=== PATIENT | male | born 1985 | race Caucasian/White ===

== ENCOUNTER 2024-11-14 11:01 | Emergency (ER) | payer BC ==
[2024-11-14 11:30] VITALS: TEMP 96.8
--- NOTE | 2024-11-14 11:39 | ERPHSYRPT ---
- History of Present Illness Time Seen by Provider: 11/14/24 11:39 Historian: patient, family Exam Limitations: no limitations Physician History: This is a 39-year-old white male patient who arrives by private vehicle with a complaint of syncopal episode at work followed by multiple episodes of vomiting, headache and abdominal pain. He is never had anything like that before. Patient has not been on any new medications. He denies illicit drug use. He denies alcohol use. He did not have any head injury. He takes no prescription medication. Patient does not recall all the events. He has not had any visual changes. He denies chest pain and he denies shortness of breath. Patient states that he ordinarily is very healthy and active. Patient smokes tobacco cigarettes daily. Activities at Onset: other (At work) Quality: aching Abdominal Pain Onset Location: periumbilical Pain Radiation: no radiation Severity of Pain-Max: moderate Severity of Pain-Current: mild Modifying Factors: Improves With: vomiting Associated Symptoms: nausea, vomiting, No chest pain, No fever/chills, No shortness of breath Previous symptoms: no prior history, no recent treatment Allergies/Adverse Reactions: gabapentin Allergy (Verified 11/14/24 11:27) ketorolac [From Toradol] Allergy (Verified 11/14/24 11:27) levofloxacin [From Levaquin] Allergy (Verified 11/14/24 11:27) tramadol [From Ultram] Allergy (Verified 11/14/24 11:27) Home Medications: No Reportable Medications [No Reported Medications] 11/14/24 [History] - Past Medical History Pertinent Past Medical History: No - Past Surgical History Past Surgical History: Yes Gastrointestinal: Hernia Repair Musculoskeletal: Orthopedic Surgery Other Surgical History: BACK X2 ,KNEE X2 ,SHOULDER,CYST REMOVED,HEMATOMA REMOVED FROM ARM - Nursing Vital Signs Nursing Vital Signs: Initial Vital Signs Temperature 96.8 F 11/14/24 11:29 Pulse Rate 66 11/14/24 11:29 Respiratory Rate 18 11/14/24 11:29 Blood Pressure 147/95 11/14/24 11:29 O2 Sat by Pulse Oximetry 100 11/14/24 11:29 Pain Scale Pain Intensity 8 - Physical Exam SpO2: 100 Ordered Tests: Active Orders 24 hr Category Date Time 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 11/14/24 12:06 Active Clean Catch Urine Specimen STAT Care 11/14/24 12:05 Active IV Insertion STAT Care 11/14/24 12:05 Active Orthostatic Vital Signs STAT Care 11/14/24 12:05 Active Pulse Oximetry (ED) STAT Care 11/14/24 12:05 Active ABDOMEN AND PELVIS W/0 CONTRAS [CT] Stat Exams 11/14/24 13:38 Ordered HEAD WITHOUT CONTRAST [CT] Stat Exams 11/14/24 12:06 Completed AMYLASE Stat Lab 11/14/24 12:13 Completed CBC W DIFF Stat Lab 11/14/24 12:13 Completed CMP Stat Lab 11/14/24 12:13 Completed ETHYL ALCOHOL Stat Lab 11/14/24 12:13 Completed LIPASE Stat Lab 11/14/24 12:13 Completed UA W/RFX UR CULTURE Stat Lab 11/14/24 12:13 Completed Urine Triage Profile Stat Lab 11/14/24 12:13 Completed Medication Summary Discontinued Medications Generic Name Dose Route Start Last Admin Trade Name Freq PRN Reason Stop Dose Admin Sodium Chloride 1,000 mls @ 999 mls/hr 11/14/24 12:05 11/14/24 13:46 Sodium Chloride 0.9% 1000 Ml IV 11/14/24 13:05 Infused .Q1H1M STA Infusion Sodium Chloride Confirm 11/14/24 12:23 Sodium Chloride 0.9% 1000 Ml Administered 11/14/24 12:24 Dose 1,000 mls @ ud .ROUTE .STK-MED ONE Ondansetron HCl 4 mg 11/14/24 12:06 11/14/24 12:26 Ondansetron Hcl 4 Mg/2 Ml Vial IV 11/14/24 12:07 4 mg STAT ONE Administration Ondansetron HCl Confirm 11/14/24 12:23 Ondansetron Hcl 4 Mg/2 Ml Vial Administered 11/14/24 12:24 Dose 4 mg .ROUTE .STK-MED ONE Pantoprazole Sodium 40 mg 11/14/24 12:06 11/14/24 12:27 Pantoprazole 40 Mg Vial IV 11/14/24 12:07 40 mg STAT ONE Administration Pantoprazole Sodium Confirm 11/14/24 12:23 Pantoprazole 40 Mg Vial Administered 11/14/24 12:24 Dose 40 mg IV .STK-MED ONE Lab/Rad Data: Laboratory Result Diagrams 11/14/24 12:13 11/14/24 12:13 Laboratory Results 11/14/24 11/14/24 11/14/24 Range/Units 12:13 12:13 12:13 WBC 10.9 H (4.23-9.07) x10^3/uL RBC 4.67 (4.63-6.08) x10^6/uL Hgb 14.7 (13.7-17.5) g/dL Hct 42.6 (40.1-51.0) % MCV 91.2 (79.0-92.2) fL MCH 31.5 (25.7-32.2) pg MCHC 34.5 (32.3-36.5) g/dL RDW 12.8 (11.6-14.4) % Plt Count 250 (163-337) x10^3/uL MPV 9.7 (9.4-12.4) fL Gran % 75.3 H (34.0-67.9) % Immature Gran % (Auto) 0.3 (0.001-0.429) % Nucleat RBC Rel Count 0.0 (0.00-0.2) % Eos # (Auto) 0.19 (0.04-0.54) x10^3/uL Immature Gran # (Auto) 0.03 (0.001-0.031) x10^3u/L Absolute Lymphs (auto) 1.72 (1.32-3.57) x10^3/uL Absolute Monos (auto) 0.68 (0.30-0.82) x10^3/uL Absolute Nucleated RBC 0.00 (0.00-0.012) x10^3u/L Lymphocytes % 15.8 L (21.8-53.1) % Monocytes % 6.3 (5.3-12.2) % Eosinophils % 1.7 (0.8-7.0) % Basophils % 0.6 (0.2-1.2) % Absolute Granulocytes 8.18 H (1.78-5.38) x10^3/uL Basophils # 0.06 (0.01-0.08) x10^3/uL Sodium 140 (135-145) mmol/L Potassium 3.9 (3.5-5.1) mmol/L Chloride 99 (98-107) mmol/L Carbon Dioxide 30 (22-30) mmol/L Anion Gap 14.7 (5-15) MEQ/L BUN 18 (9-20) mg/dL Creatinine 0.91 (0.66-1.25) mg/dL Estimated GFR 109.3 ML/MIN Glucose 91 (74-106) mg/dL Calcium 10.0 (8.4-10.2) mg/dL Total Bilirubin 0.50 (0.2-1.3) mg/dL AST 54 (17-59) U/L ALT 41 (0-50) U/L Alkaline Phosphatase 67 (38-126) U/L Serum Total Protein 7.4 (6.3-8.2) g/dL Albumin 4.8 (3.5-5.0) g/dL Amylase 54 (30-110) U/L Lipase 31 (23-300) U/L Urine Color (Yellow) Urine Appearance (Clear) Urine pH (4.6-8.0) Ur Specific [place] (1.005-1.030) Urine Protein (Negative) Urine Glucose (UA) (Negative) mg/dL Urine Ketones (Negative) Urine Blood (Negative) Urine Nitrite (Negative) Urine Bilirubin (Negative) Urine Urobilinogen (0.2) mg/dL Ur Leukocyte Esterase (Negative) U Hyaline Cast (Auto) (0-2) /LPF Urine Microscopic RBC (0-5) /HPF Urine Microscopic WBC (0-5) /HPF Ur Epithelial Cells (None Seen) /HPF Urine Bacteria (None Seen) /HPF Urine Culture Reflexed (NO) Urine Opiates Level NEGATIVE (NEGATIVE) Ur Methadone NEGATIVE (NEGATIVE) Urine Barbiturates NEGATIVE (NEGATIVE) Ur Phencyclidine (PCP) NEGATIVE (NEGATIVE) Urine Amphetamine NEGATIVE (NEGATIVE) U Benzodiazepine Level NEGATIVE (NEGATIVE) Urine Cocaine NEGATIVE (NEGATIVE) Urine Marijuana (THC) NEGATIVE (NEGATIVE) Ethyl Alcohol < 10 (0-10) mg/dL 11/14/24 Range/Units 12:13 WBC (4.23-9.07) x10^3/uL RBC (4.63-6.08) x10^6/uL Hgb (13.7-17.5) g/dL Hct (40.1-51.0) % MCV (79.0-92.2) fL MCH (25.7-32.2) pg MCHC (32.3-36.5) g/dL RDW (11.6-14.4) % Plt Count (163-337) x10^3/uL MPV (9.4-12.4) fL Gran % (34.0-67.9) % Immature Gran % (Auto) (0.001-0.429) % Nucleat RBC Rel Count (0.00-0.2) % Eos # (Auto) (0.04-0.54) x10^3/uL Immature Gran # (Auto) (0.001-0.031) x10^3u/L Absolute Lymphs (auto) (1.32-3.57) x10^3/uL Absolute Monos (auto) (0.30-0.82) x10^3/uL Absolute Nucleated RBC (0.00-0.012) x10^3u/L Lymphocytes % (21.8-53.1) % Monocytes % (5.3-12.2) % Eosinophils % (0.8-7.0) % Basophils % (0.2-1.2) % Absolute Granulocytes (1.78-5.38) x10^3/uL Basophils # (0.01-0.08) x10^3/uL Sodium (135-145) mmol/L Potassium (3.5-5.1) mmol/L Chloride (98-107) mmol/L Carbon Dioxide (22-30) mmol/L Anion Gap (5-15) MEQ/L BUN (9-20) mg/dL Creatinine (0.66-1.25) mg/dL Estimated GFR ML/MIN Glucose (74-106) mg/dL Calcium (8.4-10.2) mg/dL Total Bilirubin (0.2-1.3) mg/dL AST (17-59) U/L ALT (0-50) U/L Alkaline Phosphatase (38-126) U/L Serum Total Protein (6.3-8.2) g/dL Albumin (3.5-5.0) g/dL Amylase (30-110) U/L Lipase (23-300) U/L Urine Color Yellow (Yellow) Urine Appearance Clear (Clear) Urine pH 6.5 (4.6-8.0) Ur Specific [place] 1.010 (1.005-1.030) Urine Protein Negative (Negative) Urine Glucose (UA) Negative (Negative) mg/dL Urine Ketones Negative (Negative) Urine Blood Negative (Negative) Urine Nitrite Negative (Negative) Urine Bilirubin Negative (Negative) Urine Urobilinogen 0.2 (0.2) mg/dL Ur Leukocyte Esterase Negative (Negative) U Hyaline Cast (Auto) NONE SEEN (0-2) /LPF Urine Microscopic RBC 0-2 (0-5) /HPF Urine Microscopic WBC 0-2 (0-5) /HPF Ur Epithelial Cells None Seen (None Seen) /HPF Urine Bacteria None Seen (None Seen) /HPF Urine Culture Reflexed NO (NO) Urine Opiates Level (NEGATIVE) Ur Methadone (NEGATIVE) Urine Barbiturates (NEGATIVE) Ur Phencyclidine (PCP) (NEGATIVE) Urine Amphetamine (NEGATIVE) U Benzodiazepine Level (NEGATIVE) Urine Cocaine (NEGATIVE) Urine Marijuana (THC) (NEGATIVE) Ethyl Alcohol (0-10) mg/dL - Progress Progress: improved, re-examined Progress Note: 11/14/24 14:54 Medical decision making and the assignment of moderate complexity to this patient's medical issue today is based on review of the patient's past medical history, review the patient's medication list, reviewed patient drug allergy list, history present illness and physical findings on examination. The workup in this patient includes placement of intravenous line, infusion of normal saline solution, antiemetic, morphine 4 mg intravenously, CBC, CMP, amylase, lipase, urinalysis and urine drug screen. The patient is to undergo CT scan of the head without contrast and a CT scan of the abdomen pelvis without contrast. Differential diagnosis includes but is not limited to syncopal episode, viral illness, dehydration, urinary tract infection, acute intra-abdominal/pelvic abnormality, acute intracranial abnormality, arrhythmia, electrolyte abnormalities The CT scan of the head without contrast is interpreted by the radiologist and the impression is an unremarkable study. There is no evidence of any acute intracranial abnormality. I interpreted the patient's laboratory data results. Patient has a very mild leukocytosis. No other acute, emergent medical findings. There was a delay in ordering the CT of the abdomen pelvis without contrast. I discussed this with the patient and he states he no longer has abdominal pain and wishes not to undergo the CT scan of the abdomen pelvis. His abdominal pain and nausea have resolved. He will sign refusal of study form. Counseled pt/family regarding: lab results, diagnosis, need for follow-up, rad results Medical Desision Making - Diagnostic Testing Diagnostic test were ordered, analyzed, and reviewed by me: Yes Radiological Interpretation: Reviewed by me, Teleradiologist Report - Risk of complications Low Risk: Low risk of morbidity from additional dx testing or treatment - Departure Departure Disposition: Home Clinical Impression: Episode of syncope, Vomiting, Abdominal pain Condition: Stable Critical Care Time: No Referrals: DOCTOR,NO FAMILY [Primary Care Provider, UNKNOWN] - Follow up/PCP as directed Forms: Work/School Release Form
[2024-11-14 12:19] LABS: Absolute Neutrophil Ct (ANC) 8.18 x10^3/uL (1.78-5.38); BASOPHIL % 0.6 % (0.2-1.2); Basophil (Absolute #) 0.06 x10^3/uL (0.01-0.08); Eosinophil % 1.7 % (0.8-7.0); Eosinophil (Absolute #) 0.19 x10^3/uL (0.04-0.54); Hematocrit 42.6 % (40.1-51.0); Hemoglobin 14.7 g/dL (13.7-17.5); IMMATURE GRAN # 0.03 x10^3u/L (0.001-0.031); IMMATURE GRAN % 0.3 % (0.001-0.429); Lymphocyte (Absolute #) 1.72 x10^3/uL (1.32-3.57); Lymphocytes % 15.8 % (21.8-53.1); Mean Cell Volume 91.2 fL (79.0-92.2); Mean Corpuscular Hemoglobin 31.5 pg (25.7-32.2); Mean Corpuscular Hgb Concent. 34.5 g/dL (32.3-36.5); Mean Platelet Volume 9.7 fL (9.4-12.4); Monocyte (Absolute #) 0.68 x10^3/uL (0.30-0.82); Monocytes % 6.3 % (5.3-12.2); Neutrophil % 75.3 % (34.0-67.9); Platelet Count 250 x10^3/uL (163-337); Red Blood Count 4.67 x10^6/uL (4.63-6.08); Red Cell Distribution Width 12.8 % (11.6-14.4); White Blood Count 10.9 x10^3/uL (4.23-9.07)
[2024-11-14] MEDS ORDERED: PROTONIX 40 MG IV IV ONE (12:23)
[2024-11-14] MEDS ORDERED: Sodium Chloride 0.9% 1000 ML 1,000 ML ONE (12:23)
[2024-11-14] MEDS ORDERED: Zofran 4 MG/2 ML VIAL ONE (12:23)
[2024-11-14] MEDS: Zofran 4 MG/2 ML VIAL IV ONE (12:26)
[2024-11-14] MEDS: Sodium Chloride 0.9% 1000 ML 1,000 ML IV STA (12:26)
[2024-11-14] MEDS: PROTONIX 40 MG IV IV ONE (12:27)
[2024-11-14 12:29] LABS: Appearance Clear (Clear); Bacteria None Seen /HPF (None Seen); Bilirubin Negative (Negative); Blood Negative (Negative); Epithelial Cells None Seen /HPF (None Seen); Glucose, Urine Negative (Negative); Hyaline Casts NONE SEEN /LPF (0-2); Ketones Negative (Negative); Leukocyte Esterase Negative (Negative); Nitrite Negative (Negative); Ph 6.5 (4.6-8.0); Protein,Urine Dip Negative (Negative); RBC 0-2 /HPF (0-5); Urobilinogen 0.2 mg/dL (0.2); WBC 0-2 /HPF (0-5)
[2024-11-14 12:34] LABS: ALBUMIN 4.8 g/dL (3.5-5.0); ALKALINE PHOSPHATASE 67 U/L (38-126); AMYLASE 54 U/L (30-110); ANION GAP 14.7 MEQ/L (5-15); BLOOD UREA NITROGEN 18 mg/dL (9-20); CHLORIDE 99 mmol/L (98-107); Carbon Dioxide 30 mmol/L (22-30); Creatinine 1 0.91 mg/dL (0.66-1.25); EST GLOMERULAR FILTRATION RATE 109.3 ML/MIN; ETHYL ALCOHOL < 10 mg/dL (0-10); Glucose 91 mg/dL (74-106); LIPASE 31 U/L (23-300); Potassium 3.9 mmol/L (3.5-5.1); SGOT/AST 54 U/L (17-59); SGPT/ALT 41 U/L (0-50); SODIUM 140 mmol/L (135-145); Total Protein 7.4 g/dL (6.3-8.2)
[2024-11-14 12:46] LABS: Amphetamine,Urine NEGATIVE (NEGATIVE); Barbiturate,Urine NEGATIVE (NEGATIVE); Benzodiazepine,Urine NEGATIVE (NEGATIVE); Cocaine,Urine NEGATIVE (NEGATIVE); Methadone,Urine NEGATIVE (NEGATIVE); Opiate,Urine NEGATIVE (NEGATIVE); THC,Urine NEGATIVE (NEGATIVE)
--- NOTE | 2024-11-14 12:59 | XRAY ---
CLINICAL HISTORY: Syncope; vomiting COMPARISON: None. TECHNIQUE: Axial non-contrast CT scan of the brain was performed from the skull base to the high parietal region. One of the following dose reduction techniques was utilized for this exam: Automated exposure control, adjustment of the mA and/or kV according to patient size, and use of iterative reconstruction. FINDINGS: Brain Parenchyma: Normal attenuation of the cerebral hemispheres, cerebellum, and brainstem. No evidence of acute infarct, hemorrhage, or mass effect. No abnormal areas of hypo- or hyperattenuation. Ventricular System: Ventricles are normal in size and configuration. No evidence of hydrocephalus or ventricular enlargement. Subarachnoid Spaces: Normal sulci and cisterns. No evidence of subarachnoid hemorrhage or extra-axial fluid collections. Cerebellum and Brainstem: No masses, lesions, or areas of abnormal density. Orbits: Normal appearance of the globes, optic nerves, and extraocular muscles. No evidence of orbital masses or abnormal density. Sinuses: Clear paranasal sinuses. The nasal septum is deviated to the left side. No evidence of sinusitis or mucosal thickening. Mastoid Air Cells: Clear mastoid air cells. No evidence of mastoiditis. Skull: Normal skull morphology. IMPRESSION: 1. Unremarkable CT study of the brain. 2. No recent ischemic or hemorrhagic insult appreicated. Electronically Signed by: Yoko Webb MD. (11/14/2024 12:55:47 EDT)
[2024-11-14 13:06] LABS: PCP,Urine NEGATIVE (NEGATIVE)
[2024-11-14 13:08] VITALS: RESP 13
[2024-11-14 14:13] VITALS: BP 146/96; PULSE 66
[2024-11-14 14:59] VITALS: O2SAT 100
== END 2024-11-14 15:08 | disposition home or self-care (01) ==
LOC: ED 11:01
DX: R55 Syncope and collapse (principal); R11.2 Nausea with vomiting, unspecified; R10.9 Unspecified abdominal pain; R51.9 Headache, unspecified; Z72.0 Tobacco use
CPT/HCPCS: 36415; 70450; 80053; 80307; 81001; 82077; 82150; 83690; 85025; 93041; 94760; 96361; 96374; 96375; 99284; 99285; J2405